=== PATIENT | male | born 1940 | race Caucasian/White ===

== ENCOUNTER 2020-11-15 08:06 | Outpatient (CLI) | payer MEDICARE, OTHER ==
[~2020-11-15] VITALS: Ht 172.7 cm; Wt 98.9 kg
[~2020-11-15 08:06] MED LIST: APIX5TAB PO; ASCO250T12 PO; CARV3.122 PO; DILT120C64 PO; FURO-93 PO; HYDR12.517 PO; IVER3TAB2 PO; LOSA25TA25 PO; MELA5TAB14 PO; POTA10TA31 PO; Pt. to Bring List; QUERCETIN PO; ZINC PO
[2020-11-15 09:54] VITALS: BP 172/86
[2020-11-15] MEDS ORDERED: CHLORHEXIDINE 15 ML UDC PO ONE (10:00)
[2020-11-15] MEDS ORDERED: LACTATED RINGERS 1,000 ML IV SCH (10:00)
[2020-11-15 10:13] LABS: INTERNATIONAL NORMALIZED RATIO 0.99 (0.93-1.1); PROTHROMBIN TIME 10.6 Seconds (9.6-11.5)
[2020-11-15] MEDS ORDERED: DILT-86 PO (10:40)
[2020-11-15] MEDS ORDERED: GENTAMICIN 80 MG/2 ML ONE ×2 (12:00→13:37)
[2020-11-15] MEDS ORDERED: EPINEPHRINE 1 MG/ML, 1ML ONE (12:00)
[2020-11-15] MEDS ORDERED: VANCOMYCIN 1,000 MG ONE ×2 (12:00→13:38)
[2020-11-15] MEDS ORDERED: BUPIVACAINE/PF 0.25% ONE (12:00)
[2020-11-15] MEDS ORDERED: FENTANYL PF 250 MCG/5ML ONE (13:00)
[2020-11-15] MEDS ORDERED: PROMETHAZINE 25 MG/ML, 1ML IVPush PRN (13:30)
[2020-11-15] MEDS ORDERED: HYDROmorphone 1 MG/ML, 1ML INJ IVPush PRN (13:30)
[2020-11-15] MEDS ORDERED: FENTANYL PF 100 MCG/2ML IV PRN (13:30)
[2020-11-15] MEDS ORDERED: hydrALAzine 20 MG/ML, 1ML IV PRN (13:30)
[2020-11-15] MEDS ORDERED: OXYcodone 5 MG/5 ML ORAL.SOL UDC PO PRN (13:30)
[2020-11-15] MEDS ORDERED: MEPERIDINE/PF 25MG/0.5ML IVPush PRN (13:30)
[2020-11-15] MEDS ORDERED: LABETALOL 5MG/ML, 20ML IV PRN (13:30)
[2020-11-15] MEDS ORDERED: HALOPERIDOL 5 MG/ML IV PRN (13:30)
[2020-11-15] MEDS ORDERED: DIPHENHYDRAMINE 50 MG/ML, 1ML IVPush PRN (13:30)
[2020-11-15] MEDS ORDERED: ACETAMINOPHEN 325 MG TABLET PO PRN (13:30)
[2020-11-15] MEDS ORDERED: PROPOFOL 50 ML ONE (13:32)
[2020-11-15] MEDS ORDERED: FENTANYL PF 100 MCG/2ML ONE (13:37)
[2020-11-15] MEDS ORDERED: methylPREDNISolone SOD SUCC 125 MG/2 ML ONE (13:37)
== END 2020-11-15 23:59 | disposition home or self-care (01) ==
LOC: OUT 08:06 → STAR 08:06 → EDSTATUS 10:30 → STAR 23:59
PROVIDERS: ATTEND Neurological Surgery
DX: Z01.818 Encounter for other preprocedural examination (principal); M48.062 Spinal stenosis, lumbar region with neurogenic claudication; M96.0 Pseudarthrosis after fusion or arthrodesis
CPT/HCPCS: 36415; 85610; 85730; 86850; 86900; J0171; J2704; J3010; J3370; J1580; J2930; J7120

== ENCOUNTER → 2021-01-03 | Outpatient (CLI) | payer MEDICARE, OTHER ==
[~2021-01-03] MED LIST changes: +DILT-86 PO
[2021-01-03 11:44] LABS: MICROSCOPIC NOT IND
[2021-01-03 11:53] LABS: BASOPHILS % (AUTO) 1 % (0-1); EOSINOPHILS % (AUTO) 2 % (1-7); LYMPHOCYTES % (AUTO) 22 % (22-44); MEAN CORPUSCULAR HEMOGLOBIN 30.9 pg (27.5-34.5); MEAN CORPUSCULAR HGB CONC 33.7 g/dL (33.2-36.2); MEAN PLATELET VOLUME 8.5 fL (7.4-10.4); MONOCYTES % (AUTO) 11 % (2-9); NEUTROPHILS % (AUTO) 64 % (42-75); PLATELET COUNT 235 x10^3/uL (130-400); RED BLOOD COUNT 4.53 x10^6/uL (4.38-5.82); RED CELL DISTRIBUTION WIDTH 14.6 % (9.4-14.8)
[2021-01-03 11:56] LABS: ALBUMIN 3.6 g/dL (3.4-5.0); ANION GAP 4 mmol/L (5-15); CALCIUM 8.7 mg/dL (8.5-10.1); CHLORIDE 101 mmol/L (98-107)
[2021-01-03 11:59] LABS: INTERNATIONAL NORMALIZED RATIO 1.04 (0.93-1.1); PROTHROMBIN TIME 11.1 Seconds (9.6-11.5)
[2021-01-03 12:00] LABS: ALANINE AMINOTRANSFERASE 34 U/L (12-78); ALKALINE PHOSPHATASE 43 U/L (45-117); BILIRUBIN,TOTAL 1.5 mg/dL (0.2-1.0); CREATININE 0.86 mg/dL (0.7-1.3); TOTAL PROTEIN 6.9 g/dL (6.4-8.2)
== END | disposition home or self-care (01) ==
LOC: STAR 10:46
PROVIDERS: ATTEND Neurological Surgery
DX: Z01.818 Encounter for other preprocedural examination (principal); M96.0 Pseudarthrosis after fusion or arthrodesis
CPT/HCPCS: 36415; 80053; 81003; 85025; 85610; 85730